=== PATIENT | male | born 1950 | race Caucasian/White ===

== ENCOUNTER 2023-01-12 07:20 | Day surgery (SDC) | payer MEDICARE, BC ==
[2023-01-12] MEDS ORDERED: Dextrose 5%-0.45% NaCl 1,000 ML IV SCH (07:45)
[2023-01-12] MEDS ORDERED: fentaNYL 100 MCG/2 ML SDV ONE (08:12)
[2023-01-12] MEDS ORDERED: Midazolam 1 MG/ML 2 ML SDV ONE (08:12)
[2023-01-12] MEDS ORDERED: fentaNYL 100 MCG/2 ML SDV IV ONE ×3 (08:14→08:25)
[2023-01-12] MEDS ORDERED: Midazolam 1 MG/ML 2 ML SDV IV ONE ×6 (08:15→08:22)
== END 2023-01-12 09:50 | disposition home or self-care (01) ==
LOC: DL.ENDO 07:20
PROVIDERS: ATTEND Internal Medicine Gastroenterology
DX: Z12.11 Encounter for screening for malignant neoplasm of colon (principal); D12.4 Benign neoplasm of descending colon; I10 Essential (primary) hypertension; E78.5 Hyperlipidemia, unspecified
CPT/HCPCS: J2250; J3010; J7042